=== PATIENT | female | born 2000 | race Two or more races ===

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

== ENCOUNTER 2020-05-20 12:00 | Observation (INO) | payer MEDICAID | END 2020-05-20 14:00 | disposition home or self-care (01) | LOC: LDRP 12:00 | PROVIDERS: ADMIT Specialist; ATTEND Specialist | DX: Z34.90 Encounter for supervision of normal pregnancy, unspecified, unspecified trimester (principal); Z53.21 Procedure and treatment not carried out due to patient leaving prior to being seen by health care provider | CPT/HCPCS: G0378 ==